=== PATIENT | male | born 2000 | race African-American/Black ===

== ENCOUNTER 2018-02-12 05:40 | Emergency (ER) | payer OTHER, MEDICAID ==
[~2018-02-12] VITALS: Ht 172.7 cm; Wt 65.0 kg
[2018-02-12 05:46] VITALS: BP 135/77; PULSE 98; RESP 18; TEMP 98.1; O2SAT 98
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
[2018-02-12] MEDS ORDERED: KETOROLAC TROMETHAMINE 30 MG/ML (IVP) VIAL IV PUSH ONE (07:00)
[2018-02-12] MEDS ORDERED: TYLE325T PO (07:02)
[2018-02-12 07:10] VITALS: BP 128/65; PULSE 62; RESP 16; TEMP 98.7; O2SAT 98
== END 2018-02-12 09:40 | disposition home or self-care (01) ==
LOC: NEPC 05:40 → EDBD 05:40 → NEPC 09:40
DX: M54.2 Cervicalgia (principal); M54.9 Dorsalgia, unspecified; V47.5XXA Car driver injured in collision with fixed or stationary object in traffic accident, initial encounter; Z72.0 Tobacco use
CPT/HCPCS: 70450; 72125; 72128; 72131; 99283